=== PATIENT | female | born 1970 | race Asian ===

== ENCOUNTER → 2019-11-28 10:36 | Outpatient (CLI) | payer OTHER, SELFPAY ==
--- NOTE | 2019-11-28 | DI.US.S_ITS ---
PROCEDURE: US PELVIC COMPLETE INDICATIONS: CHRONIC KIDNEY DISEASE TECHNIQUE: Real-time scanning was performed of the pelvic organs, with image documentation. Additional endovaginal scanning was necessary due to incomplete visualization of the adnexal and endometrial structures by transabdominal scanning. COMPARISON: Outside Facility, US, US ABDOMEN COMPLETE, 10/24/2019, 10:30. FINDINGS: Transabdominal scanning: Limited scanning through the kidneys shows no hydronephrosis. No pathologic free abdominal or pelvic fluid. Endovaginal scanning: Uterus: Uterus is normal in size at 10.2 x 2.7 x 3.8 cm. The endometrium measures 4 mm in combined thickness. Ovaries: Within the right adnexal region, there is a large complex cystic mass seen that measures 9.7 x 6.2 x 9.1 cm. The right ovary is not seen separate from this structure. No abnormal vascularity can be seen. The left ovary is not seen. IMPRESSION: Complex cystic mass measuring up to 9.7 cm within the right adnexal region, which is presumed to be related to a right ovarian cystic mass. Please consider a gynecology consultation. If it would be helpful for clinical management decision making, please consider a dedicated gynecology protocol MRI (without and with contrast) for further evaluation (assuming that there is no contraindication). Dictated by: Milton Salas M.D. on 11/28/2019 at 11:45 Approved by: Milton Salas M.D. on 11/28/2019 at 11:58
== END ==
PROVIDERS: PCP Family Medicine; Referring Provider Family Medicine; Visit Provider Family Medicine
DX: N18.9 Chronic kidney disease, unspecified (principal); R19.09 Other intra-abdominal and pelvic swelling, mass and lump
CPT/HCPCS: 76830; 76856

== ENCOUNTER → 2020-04-15 07:52 | Outpatient (CLI) | payer OTHER, SELFPAY ==
--- NOTE | 2020-04-15 07:53 | DI.MG.S_ITS ---
BILATERAL DIGITAL SCREENING MAMMOGRAM 3D/2D WITH CAD: 04/15/2020 CLINICAL: Routine screening. Comparison is made to exam dated: 05/10/2010 mammogram - [facility]. The tissue of both breasts is extremely dense, which lowers the sensitivity of mammography. Current study was also evaluated with a Computer Aided Detection (CAD) system. No significant masses, calcifications, or other findings are seen in either breast. There has been no significant interval change. IMPRESSION: NEGATIVE There is no mammographic evidence of malignancy. A 1 year screening mammogram is recommended. This exam was interpreted at Station ID: [id number]. NOTE: For mammograms, a report in lay terms will be sent to the patient. Approximately 15% of breast malignancies will not be visualized mammographically. In the management of a palpable breast mass, a negative mammogram must not discourage biopsy of a clinically suspicious lesion. Electronically Signed By: Ankur [email or web address]/joao:04/15/2020 08:20:10 letter sent: Normal Exam ACR BI-RADS Category 1: Negative [id number]
== END ==
PROVIDERS: PCP Family Medicine; Referring Provider Family Medicine; Visit Provider Family Medicine
DX: Z12.31 Encounter for screening mammogram for malignant neoplasm of breast (principal)
CPT/HCPCS: 77063; 77067

== ENCOUNTER → 2020-06-17 10:59 | Outpatient (CLI) | payer OTHER, SELFPAY ==
[2020-06-17 12:59] LABS: COVID19 -Nasal RAPID Negative (Negative)
== END ==
PROVIDERS: PCP Family Medicine; Visit Provider Physician Assistant
DX: Z11.59 Encounter for screening for other viral diseases (principal)
CPT/HCPCS: 87635

== ENCOUNTER 2020-06-19 15:03 | Day surgery (SDC) | payer OTHER, SELFPAY ==
--- NOTE | 2020-06-19 12:33 | PM.HP.1 ---
History of Present Illness History of Present Illness Date Patient Seen: 06/19/20 Chief complaint: ILC Narrative: 49 Years Old Female seen today for consideration of a screening colonoscopy. There have been no lower GI symptoms suggesting disease such as change in bowel habits, bleeding, abdominal pain or anemia. She is on list for kidney transplant, requires colonoscopy prior to approval. There's been no family history of colon cancer or colon polyps. Overall health issues have been stable, including no major cardiac events for at least 6 weeks. 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 @ [employer] Household Members: daughter, two dogs Patient History Family & Social History Tobacco & Substance use: Smoking Status Never smoker Meds Home Medications and Allergies Home Medications Medication Instructions Recorded Confirmed Type [POTASIUM CITRATE] 1,080 mg PO BID #0 11/19/10 06/19/20 History levothyroxine 25 mcg capsule 25 mcg PO DAILY 12/09/19 06/19/20 History amlodipine 5 mg PO DAILY 06/19/20 06/19/20 History omeprazole 20 mg PO DAILY 06/19/20 06/19/20 History Allergies Allergy/AdvReac Type Severity Reaction Status Date / Time No Known Drug Allergies Allergy Unverified 12/09/19 13:23 Review of Systems Review of Systems ROS: Yes All systems reviewed with the patient and are negative except as otherwise documented Exam Narrative Exam Narrative: GENERAL: Alert and oriented, appearing stated age and in no acute distress. HEENT: Head normocephalic/atraumatic. Pupils equal, round, and reactive to light and accomodation. Extraocular muscles intact. Tympanic membranes clear. Nasal mucosa moist, septum midline. Oral mucosa moist, no lesions. Neck soft and supple, no lymphadenopathy. LUNGS: Clear to ausculation bilaterally, no wheezes, rhonchi or rales. CV: Normal S1 and S2 with regular rate and rhythm, no audible murmurs, rubs or gallops. ABDOMEN: Soft, non-tender, non-distended, no organomegaly. Positive bowel sounds. EXTREMITIES: No clubbing, cyanosis, or edema. NEURO: Cranial nerves II through XII grossly intact, no focal deficits. PSYCH: Alert and oriented x 3. SKIN: No concerning lesions. Assessment & Plan Assessment & Plan narrative: 1. Screening for colon cancer 2. CKD stage 4 Plan for colonoscopy. The nature and character of the procedure as well as anticipated results were discussed. The possibility of not completing the procedure was also discussed. Possible complications including aspiration pneumonia, bleeding, perforation and reaction to medications either for sedation or preparation and missed lesions were discussed. Questions were answered and proceeding to the colonoscopy was elected. Informed consent signed. Due to patient's degree of kidney disease, will consult MD anesthesia for this high-risk patient. I sincerely appreciate the referral allowing me to participate in this patient's care. Please contact me with any questions or concerns.
--- NOTE | 2020-06-19 12:36 | PM.OP.ENDO ---
Operative Date/Time/Diagnoses Date of procedure: 06/19/20 Procedure Notes SCOAP/Timeout: 4:07 p.m. Procedure in detail: ENDOSCOPIST: Samia Delgado MD Anesthesiologist: Dr. Pierre Sedation start time: 4:08 p.m. Sedation end time: 4:20 p.m. PROCEDURE: Colonoscopy INDICATIONS: 1. Screening for colon cancer 2. CKD stage 4 MEDICATION: Levsin 0.125 mg sublingual, incremental doses of Versed and fentanyl until appropriate level sedation achieved. ASA CLASS: 3 CECAL WITHDRAWAL TIME: 6 minutes COMPLICATIONS: None. EXTENT OF PROCEDURE: Cecum. QUALITY OF PREP: Good with portions of liquid stool. PROCEDURE: Prior to insertion of the colonoscope, a digital rectal examination was accomplished with circumferential palpation of the distal rectal mucosa without significant findings being noted. The high-definition pediatric colonoscope was passed into the rectum in the usual fashion and advanced over to the cecum without difficulty. The ileocecal valve, appendiceal stoma, and medial wall all could be inspected and no abnormalities were seen. ASCENDING COLON: As the colonoscope was withdrawn, care was taken to expose and inspect the haustral folds and no abnormalities were seen. HEPATIC FLEXURE: Normal, no polyps, diverticula or other abnormalities. TRANSVERSE COLON: Normal, no polyps, diverticula or other abnormalities. DESCENDING COLON: Normal, no polyps, diverticula or other abnormalities. SIGMOID COLON: Normal, no polyps, diverticula or other abnormalities. RECTUM: Normal. J maneuver was produced. There was no significant perianal disease. The J maneuver was broken. The remainder of the rectum was inspected and there was minor external hemorrhoid disease. The scope was withdrawn. IMPRESSION: 1. Normal colonoscopy 2. Minor external hemorrhoids PLAN: 1. Repeat colonoscopy in 10 years. The possibility of a missed lesion including a malignancy has been discussed with the patient previously. Potential alarm symptoms have been discussed and should be reported immediately.
[2020-06-19 15:26] VITALS: BP 135/90; PULSE 83; RESP 16; TEMP 36.9; O2SAT 100
[2020-06-19 15:27] VITALS: BMI 19.3
[2020-06-19] MEDS: LACTATED RINGERS 1,000 ML 200 ML IV (15:37)
[2020-06-19] MEDS: HYOSCYAMINE 0.125 MG TABLET PO (15:37)
--- NOTE | 2020-06-19 15:42 | SUR.PREOP ---
All care provided by Lenore Bose RN.
[2020-06-19 16:23] VITALS: BP 109/71; PULSE 69; RESP 21; TEMP 36.8; O2SAT 100
[2020-06-19 16:28] VITALS: BP 117/73; PULSE 72; RESP 17; O2SAT 100
[2020-06-19 16:33] VITALS: BP 124/71; PULSE 64; RESP 16; O2SAT 100
[2020-06-19 16:38] VITALS: BP 129/81; PULSE 64; RESP 13; O2SAT 100
[2020-06-19 16:42] VITALS: BP 134/84; PULSE 68; RESP 16; TEMP 37.3; O2SAT 100
== END 2020-06-19 16:50 | disposition home or self-care (01) ==
PROVIDERS: PCP Family Medicine; Referring Provider Student in an Organized Health Care Education/Training Program; Visit Provider Student in an Organized Health Care Education/Training Program
PROC: 0DJD8ZZ Inspection of Lower Intestinal Tract, Via Natural or Artificial Opening Endoscopic (ICD-10-PCS; CPT 45378; principal; 2020-06-19 16:00)
DX: Z12.11 Encounter for screening for malignant neoplasm of colon (principal); N18.4 Chronic kidney disease, stage 4 (severe); K64.4 Residual hemorrhoidal skin tags
CPT/HCPCS: 45378

== ENCOUNTER → 2023-11-03 14:27 | Outpatient (CLI) | payer OTHER, SELFPAY ==
--- NOTE | 2023-11-03 14:28 | DI.MG.S_ITS ---
BILATERAL DIGITAL SCREENING MAMMOGRAM 3D/2D WITH CAD: 11/03/2023 CLINICAL: Routine screening. Comparison is made to exam dated: 04/15/2020 [facility]. The breasts are extremely dense, which lowers the sensitivity of mammography (category d />75% glandular tissue). Current study was also evaluated with a Computer Aided Detection (CAD) system. No significant masses, calcifications, or other findings are seen in either breast. There has been no significant interval change. IMPRESSION: NEGATIVE There is no mammographic evidence of malignancy. A 1 year screening mammogram is recommended. Based on the Tyrer Cuzick model (a risk assessment model) the patient's lifetime risk is 17.7% and her 10 year risk is 5.2%. According to the ACR, ACS, and NCCN guidelines, an annual breast MRI exam along with mammogram is recommended if the patient's lifetime risk is 20% or greater. This exam was interpreted at Station ID: [id number]. NOTE: For mammograms, a report in lay terms will be sent to the patient. Approximately 15% of breast malignancies will not be visualized mammographically. In the management of a palpable breast mass, a negative mammogram must not discourage biopsy of a clinically suspicious lesion. Electronically Signed By: Dony velasco/joao:11/03/2023 16:48:51 letter sent: Normal Exam ACR BI-RADS Category 1: Negative
== END ==
PROVIDERS: PCP Family Medicine; Referring Provider Family Medicine; Visit Provider Family Medicine
DX: Z12.31 Encounter for screening mammogram for malignant neoplasm of breast (principal); R92.343 Mammographic extreme density, bilateral breasts
CPT/HCPCS: 77063; 77067

== ENCOUNTER → 2024-11-01 10:57 | Outpatient (CLI) | payer OTHER, SELFPAY ==
--- NOTE | 2024-11-01 10:59 | DI.MG.S_ITS ---
MM screening mammo BI: 11/01/2024. BI-RADS: 1 CLINICAL: 54-year old female for bilateral screening mammogram. Tyrer-Cuzick lifetime risk of 8.8%. No personal or first-degree family history of breast cancer. PRIOR EXAMS 11/03/2023, 04/15/2020. MAMMOGRAPHY TECHNIQUE: 2D and 3D (tomosynthesis) digital mammographic views obtained, with additional images as needed for full coverage. Current study was also evaluated with a Computer Aided Detection (CAD) system. DENSITY D. The breasts are extremely dense, which lowers the sensitivity of mammography. MAMMOGRAPHY FINDINGS Bilateral: No suspicious mass, asymmetry, microcalcification, or other abnormality seen. IMPRESSION: * No evidence of malignancy. RECOMMENDATIONS Bilateral * Annual screening mammography. OVERALL ASSESSMENT CATEGORY BI-RADS-1: Negative. The [employer] recommends annual screening mammography beginning at age 40 for women with average risk of breast cancer. ELECTRONICALLY SIGNED: Kavya Anderson M.D. on 11/02/2024 at 03:13:52 PM PT Interpreting Station ID: [id number]
== END ==
LOC: MAMMO 10:58
PROVIDERS: PCP Family Medicine; Referring Provider Family Medicine; Visit Provider Family Medicine
DX: Z12.31 Encounter for screening mammogram for malignant neoplasm of breast (principal); R92.343 Mammographic extreme density, bilateral breasts
CPT/HCPCS: 77063; 77067